=== PATIENT | female | born 1985 | race Two or more races ===

== ENCOUNTER 2019-10-03 18:36 | Emergency (ER) | payer OTHER ==
[~2019-10-03] VITALS: Ht 167.6 cm; Wt 63.5 kg
[~2019-10-03 18:36] MED LIST: CATAFLAM50 MG PO; CIPRO750 MG PO; MILLIPRED DP5 M1 PO; TRAMADOL HCL50 MG PO
== END 2019-10-03 23:24 | disposition home or self-care (01) ==
LOC: ER 18:36
DX: O26.891 Other specified pregnancy related conditions, first trimester (principal); R11.2 Nausea with vomiting, unspecified; Z3A.13 13 weeks gestation of pregnancy

== ENCOUNTER → 2019-11-26 | Outpatient (CLI) | payer OTHER | END | disposition home or self-care (01) | LOC: PRENATAL 13:42 | PROVIDERS: ATTEND Obstetrics & Gynecology Maternal & Fetal Medicine | DX: O35.0XX1 Maternal care for (suspected) central nervous system malformation in fetus, fetus 1 (principal); O35.3XX1 Maternal care for (suspected) damage to fetus from viral disease in mother, fetus 1; O98.512 Other viral diseases complicating pregnancy, second trimester; Z36.89 Encounter for other specified antenatal screening; Z3A.20 20 weeks gestation of pregnancy ==

== ENCOUNTER 2020-04-05 06:04 | Inpatient (IN) | payer OTHER ==
[~2020-04-05] VITALS: Ht 157.5 cm; Wt 75.7 kg
[2020-04-05] MEDS ORDERED: PRENATAL TABLE1 EAC1 PO (06:34)
[2020-04-05] MEDS ORDERED: PEPCID AC10 MG PO (06:35)
== END 2020-04-07 12:56 | disposition home or self-care (01) | DRG 807 ==
LOC: LDR 06:04 → OB/GYN 06:04 → LDR 08:01 → OB/GYN 15:46
PROVIDERS: ADMIT Obstetrics & Gynecology; ATTEND Obstetrics & Gynecology
PROC: 10E0XZZ Delivery of Products of Conception, External Approach (ICD-10-PCS; principal; 2020-04-05)
PROC: 10907ZC Drainage of Amniotic Fluid, Therapeutic from Products of Conception, Via Natural or Artificial Opening (ICD-10-PCS; 2020-04-05)
PROC: 4A1HXFZ Monitoring of Products of Conception, Cardiac Rhythm, External Approach (ICD-10-PCS; 2020-04-05)
DX: O80 Encounter for full-term uncomplicated delivery (principal); Z37.0 Single live birth; Z3A.39 39 weeks gestation of pregnancy; Z20.822 Contact with and (suspected) exposure to COVID-19

== ENCOUNTER 2020-04-15 16:22 | Emergency (ER) | payer OTHER ==
[~2020-04-15] VITALS: Ht 157.5 cm; Wt 69.4 kg
[~2020-04-15 16:22] MED LIST changes: +PEPCID AC10 MG PO; +PRENATAL TABLE1 EAC1 PO
== END 2020-04-15 19:26 | disposition home or self-care (01) ==
LOC: ER 16:22
DX: N61.0 Mastitis without abscess (principal); Z03.818 Encounter for observation for suspected exposure to other biological agents ruled out

== ENCOUNTER 2023-04-24 14:09 | Emergency (ER) | payer OTHER ==
[~2023-04-24] VITALS: Ht 157.5 cm; Wt 71.7 kg
== END 2023-04-24 18:39 | disposition home or self-care (01) ==
LOC: ER 14:10
DX: H57.12 Ocular pain, left eye (principal)